=== PATIENT | female | born 1985 | race Asian ===

== ENCOUNTER 2017-10-24 18:25 | Emergency (ER) | payer MEDICAID ==
[~2017-10-24] VITALS: Ht 157.5 cm; Wt 57.2 kg
[2017-10-24 18:28] VITALS: BP_SYST 126
[2017-10-24] MEDS ORDERED: DIPH-TET-PERTUS Vaccine 0.5 ML VIAL (ADACEL) I.M. ONE (19:00)
[2017-10-24] MEDS ORDERED: KETOROLAC TROMETHAMINE 30 MG VIAL IM ONE (19:00)
[2017-10-24] MEDS ORDERED: LIDOCAINE 1% 10 MG/ML, 20 ML MDV INJ ONE (19:15)
[2017-10-24 20:30] VITALS: BP_SYST 123
== END 2017-10-24 20:30 | disposition home or self-care (01) ==
LOC: SED 18:25
DX: S51.811A Laceration without foreign body of right forearm, initial encounter (principal); W25.XXXA Contact with sharp glass, initial encounter; Y93.89 Activity, other specified; Y92.89 Other specified places as the place of occurrence of the external cause; Y99.8 Other external cause status
CPT/HCPCS: 12004; 73090; 73100; 90471; 90715; 96372; 99284; J1885